=== PATIENT | female | born 1980 | race Caucasian/White ===

== ENCOUNTER 2016-07-04 00:05 | Inpatient (IN) | payer BC ==
--- NOTE | 2016-07-04 00:33 | P.PROBDLV ---
Vaginal Delivery Note - . Vaginal Delivery Note: I was called to see this patient shortly after her arrival to triage. She is a patient of Dr. Mayfield'marilee and arrived in active labor. As soon as she was placed on the bed in triage, the baby precipitously delivered with spontaneous rupture membranes at that time. It appeared to be clear fluid but a lot of blood was noted at the time. Dr. Cantu was called and is en route. Since I was available in the hospital I was called to assist with the delivery. When I arrived the baby was crying and was being taken to the nursery by nursing staff. A viable female was noted with scores of 8 at 1 minute and 9 at 5 minutes and weight of 6 lbs. 14 oz. Placenta delivered shortly thereafter, intact, with a three-vessel cord. Ears contracted well after oxytocin was given and uterine massage was carried out. Inspection with a gloved hand did reveal some small amount of membranes that was palpable. This was grasped with a gloved hand and pulled out in one piece. Inspection of the perineum revealed no perineal lacerations. Estimated blood loss is approximately 200 mL's. Both mother and are in stable condition. Baby delivery time was 12:07 AM and placenta delivery time was 12:19 AM.
[2016-07-04] MEDS ORDERED: LANOLIN CREAM 5 GM TUBE TOPICAL PRN (00:43)
[2016-07-04] MEDS ORDERED: ZOLPIDEM 5 MG TAB PO PRN (00:43)
[2016-07-04] MEDS ORDERED: Acetaminophen-Codeine 300-30mg TAB PO PRN (00:43)
[2016-07-04] MEDS ORDERED: diphenhydrAMINE 25 MG CAP PO PRN (00:43)
[2016-07-04] MEDS ORDERED: diphenhydrAMINE 50 MG/ML 1 ML VIAL IVP PRN ×2 (00:43)
[2016-07-04] MEDS ORDERED: WITCH HAZEL 1 EACH MED..PAD TOPICAL PRN (00:43)
[2016-07-04] MEDS ORDERED: HYDROCORTISONE 2.5% RECTAL CREAM 30 GM TUBE RECTAL PRN (00:43)
[2016-07-04] MEDS ORDERED: SIMETHICONE 80 MG CHEWABLE PO PRN (00:43)
[2016-07-04] MEDS ORDERED: ACETAMINOPHEN TAB 325 MG TAB PO PRN (00:43)
[2016-07-04] MEDS ORDERED: BENZOCAINE/MENTHOL SPRAY 1 GM/SPRAY AEROSOL TOPICAL PRN (00:43)
[2016-07-04] MEDS ORDERED: diphenhydrAMINE 50 MG CAP PO PRN (00:43)
[2016-07-04] MEDS ORDERED: diphenhydrAMINE ELIXIR 25 MG/10 ML CUP PO PRN (00:43)
--- NOTE | 2016-07-04 00:43 | P.HPOB ---
History of Present Illness H&P Date: 07/04/16 Chief Complaint: Delivered in triage This is a 36-year-old white female 4 para 2012 EDC 06/30/2016 at 40-4/7 weeks' gestation. Patient presented to the hospital with a complaint of uterine contractions. Upon transferring to the bed in the triage area, spontaneous amniorrhexis occurred with clear fluid and rapid delivery. Patient delivered a liveborn female infant with scores of 8 and 9 at one and 5 minutes respectively at 1207 hrs. Umbilical cord was doubly clamped and ligated. Infant's scores were 8 and 9 at one and 5 minutes respectively. Infant weighed 6 lbs. 14 oz. or 3120 g. Placenta delivered spontaneously, it was inspected and noted to be intact with trivascular cord at 1219 hrs. At this time, I draped the perineal body. Inspection of the cervix, vagina, perineum. Rectal areas revealed no lacerations and no defects. Fundus is firm and in the midline, symmetric and 18 week size. Estimated blood loss 250 mL's. Past medical history is significant for cleft palate. Patient also has obesity. Past surgical history cleft palate repair, colonoscopy 2, arthroscopic surgery of the left knee, voluntary termination of . ALLERGIES include Avelox to which she reports throat swelling. Family history significant for colon cancer diabetes and hypertension. Obstetric history: Blood type is O+, rubella status immune. VDRL testing, urine culture, hepatitis B surface antigen, HIV testing, gonorrhea and chlamydia cultures, antibody screen all negative. One-hour Glucola 125. Group B strep cultures negative. Social history is significant for former tobacco smoker, quit with . She denies alcohol or drug use. She is a medical laboratory manager. Current medications vitamins. On exam this is a pleasant white female, 5 foot 4-1/2 inches, approximate 200 pounds, vital signs are stable and patient is afebrile. The general physical exam is within normal limits. Extremities reveal no edema. Breasts are not engorged. As noted, at this time perineal body is clean and dry. There is minimal lochia rubra noted. Impression: 40-4/7 weeks', advanced maternal age, precipitous delivery in the triage area. Mother and baby both doing well. Plan: Continue care at this time. Review of Systems Negative except as in HPI Past Medical History Past Medical History: No Reported History History of Any Multi-Drug Resistant Organisms: None Reported Additional Past Surgical History / Comment(s): Left knee arthroscopy, cleft palate repair as Past Anesthesia/Blood Transfusion Reactions: No Reported Reaction Past Psychological History: No Psychological Hx Reported Smoking Status: Never smoker Past Alcohol Use History: None Reported Past Drug Use History: None Reported - Past Family History Mother Family Medical History: Diabetes Mellitus, Hypertension Father Family Medical History: Diabetes Mellitus, Hypertension Sister(s) Family Medical History: Diabetes Mellitus, Hypertension Medications and Allergies Home Medications Medication Instructions Recorded Confirmed Type Pnv with Ca,No.71/Iron/FA 1 tab PO DAILY 06/07/14 06/18/16 History [Vol-Plus Tablet] Allergies Allergy/AdvReac Type Severity Reaction Status Date / Time moxifloxacin HCl Allergy Rash/Hives Verified 06/18/16 04:26 [From Avelox] Exam See dictation, please Assessment and Plan Plan: Routine care. Time with Patient: Less than 30
[2016-07-04] MEDS ORDERED: OXYTOCIN 30 UNITS/500 ML NS 30 UNIT in SALINE 1 500ML.BAG IV SCH (00:45)
[2016-07-04 01:33] VITALS: BMI 34.8
[2016-07-04] MEDS: IBUPROFEN 600 MG TAB PO PRN ×4 (01:45→23:45)
[2016-07-04] MEDS ORDERED: OXYTOCIN 10 UNIT/ML 1 ML VIAL IM ONE (01:48)
--- NOTE | 2016-07-04 08:54 | P.PNOBGVD ---
Subjective - Subjective Patient reports: Reports appetite normal, Reports voiding normally, Reports pain well controlled, Reports ambulating normally : doing well Objective - Latest Vital Signs Latest vital signs: Vital Signs Temp Pulse Resp BP Pulse Ox 07/04/16 02:24 66 15 114/64 07/04/16 01:54 16 131/84 98 07/04/16 01:24 82 17 124/74 96 07/04/16 01:09 76 17 122/69 98 07/04/16 00:54 72 17 124/67 99 07/04/16 00:39 81 17 129/74 99 07/04/16 00:24 96.8 F L 77 18 132/65 98 Intake and Output 07/03/16 07/04/16 07/04/16 22:59 06:59 14:59 Output Total 400 Balance -400 Output: Estimated Blood Loss 400 Other: Weight 92.079 kg - Exam Lungs: bilateral: normal Chest: Normal S1, Normal S2 Extremities: Present: normal Abdomen: Present: normal appearance, soft Uterus: Present: normal, firm Assessment and Plan (1) Normal spontaneous vaginal delivery Narrative/Plan: Continue routine care. Anticipate discharge home tomorrow morning. Current Visit: No Status: Acute Code(s): O80 - ENCOUNTER FOR FULL-TERM UNCOMPLICATED DELIVERY SNOMED Code(s): 28056670
[2016-07-04] MEDS: SENNOSIDES-DOCUSATE SODIUM 1 EACH TAB PO SCH ×2 (10:08→23:46)
[2016-07-05] MEDS: IBUPROFEN 600 MG TAB PO PRN (08:11)
[2016-07-05] MEDS: SENNOSIDES-DOCUSATE SODIUM 1 EACH TAB PO SCH (08:12)
[2016-07-05 08:16] VITALS: BP 141/79; PULSE 66; RESP 16; TEMP 97.9
--- NOTE | 2016-07-05 08:57 | P.DS ---
Providers Date of admission: 07/04/16 00:06 Expected date of discharge: 07/05/16 Attending physician: Fred Mayfield Primary care physician: Stated None - Discharge Diagnosis(es) (1) Normal spontaneous vaginal delivery Current Visit: No Status: Acute Hospital Course: The patient is a 36-year-old 4 para 2012 admitted at 40-4/7 weeks by good dating parameters. She is admitted in active labor and, while in triage and being transferred from her transport bed to a triage bed had spontaneous rupture of membranes and precipitously delivered in the presence only of the nurses a viable 6 lbs. 14 oz. baby girl with Apgars of 8 at 1 minute and 9 at 5 minutes. Her course was entirely unremarkable with vital signs remaining stable and her temperature was afebrile throughout. She was deemed stable for discharge by day #1 and was discharged home to follow-up in the office in 6 weeks' time routinely. Discharge instructions included calling for any significantly increased bleeding or foul-smelling lochia, significantly increased fever or abdominal pain, perineal complaints, breast complaints, or anything else that concerned her. She was additionally instructed to have nothing in the vagina for at least 6 weeks time to include intercourse. She understood her instructions and agrees to follow up as noted above. Discharge medications included continued vitamins as she has opted to breast-feed. She otherwise was to use [id number] analgesic pain medications as needed. Maternal blood type is O+ and rubella status is immune. Procedures: #1. Precipitous normal spontaneous vaginal delivery Patient Condition at Discharge: Good Plan - Discharge Summary Discharge Medication List Pnv with Ca,No.71/Iron/FA [Vol-Plus Tablet] 1 tab PO DAILY 06/07/14 [History] Follow up Appointment(s)/Referral(s): Fred Mayfield MD [STAFF PHYSICIAN] - 1 Week Discharge Disposition: HOME SELF-CARE
== END 2016-07-05 10:15 | disposition home or self-care (01) | DRG 775 ==
LOC: FBPOP 00:05 → 4FBP 00:06
PROVIDERS: ADMIT Obstetrics & Gynecology; ATTEND Obstetrics & Gynecology
PROC: 10E0XZZ Delivery of Products of Conception, External Approach (ICD-10-PCS; principal; 2016-07-04)
DX: O99.214 Obesity complicating childbirth (principal); O62.3 Precipitate labor; Z37.0 Single live birth; Z3A.40 40 weeks gestation of pregnancy; Z87.891 Personal history of nicotine dependence; Z82.49 Family history of ischemic heart disease and other diseases of the circulatory system
CPT/HCPCS: 88307

== ENCOUNTER → 2023-06-21 | Outpatient (CLI) | payer BC ==
--- NOTE | 2023-06-21 16:25 | CT ---
EXAMINATION TYPE: CT sinus wo con DATE OF EXAM: 06/21/2023 COMPARISON: None HISTORY: Chronic sinusitis. CT DLP: 500.1 mGycm. Automated Exposure Control for Dose Reduction was Utilized. TECHNIQUE: CT scan of the sinuses is performed without contrast, axial images are obtained, coronal r eformatted images are also reviewed. FINDINGS: There is marked mucosal thickening in the inferior aspect of the right maxillary sinus. There is a ti ny focal area of mucosal thickening in the left maxillary sinus. There is inflammatory change/mucosal thickening obstructing the right ostiomeatal complex. The left ostiomeatal complex is patent. The nasal cavity is unremarkable. The frontal ethmoid and sphenoid sinuses are well aerated. No osseous lesions are seen. The intraorbital contents are normal and symmetric. There is mild fluid scattered within the left mastoid air cells. The right mastoid air cells are well aerated. IMPRESSION: 1. Chronic sinusitis involving the right maxillary sinus as described above. 2. Mild fluid in the left mastoid air cells
== END | disposition home or self-care (01) ==
LOC: RADCTMAIN 15:11
PROVIDERS: ATTEND Otolaryngology
DX: J32.0 Chronic maxillary sinusitis (principal); H74.8X2 Other specified disorders of left middle ear and mastoid
CPT/HCPCS: 70486

== ENCOUNTER 2024-04-09 09:25 | Day surgery (SDC) | payer BC ==
[2024-04-06 10:59] VITALS: BMI 31.7
--- NOTE | 2024-04-08 07:30 | P.GSHP ---
History of Present Illness H&P Date: 04/08/24 Chief Complaint: Right flank pain The patient is a 44-year-old white female with a history of kidney stones, none of which have required surgery. She now presents with a 4-week history of right flank pain. CT scan and renal ultrasound have shown moderate right hydronephrosis. CT scan shows a 9 mm right renal calculus which does not appear to be obstructing, as well as nonobstructing left renal calculi measuring up to 3 mm. She has been offered the options of observation, extracorporal shockwave lithotripsy (ESWL), and ureteroscopic removal of the calculus. She has elected to proceed with the latter. - Gastrointestinal Gastrointestinal: Reports nausea - Genitourinary (Female) Genitourinary: Reports flank pain, Reports hematuria, Reports kidney stones, Reports urinary frequency Past Medical History Past Medical History: No Reported History Additional Past Medical History / Comment(s): Benign lesions on liver. Hx migr aines. Varicose veins left leg. History of Any Multi-Drug Resistant Organisms: None Reported Past Surgical History: Orthopedic Surgery Additional Past Surgical History / Comment(s): Left knee arthroscopy, cleft palate repair as . Past Anesthesia/Blood Transfusion Reactions: No Reported Reaction, Motion Sickness Smoking Status: Current every day smoker - Past Family History Mother Family Medical History: Diabetes Mellitus, Hypertension Father Family Medical History: Cancer, Diabetes Mellitus, Hypertension Additional Family Medical History / Comment(s): Colon cancer. Sister(s) Family Medical History: Diabetes Mellitus, Hypertension Medications and Allergies Home Medications Medication Instructions Recorded Confirmed Type HYDROcodone/APAP 5-325MG [[place] 1 tab PO Q6HR PRN 04/06/24 04/06/24 History 5-325] Ketorolac [Toradol] 10 mg PO Q6HR PRN 04/06/24 04/06/24 History Ondansetron [Zofran] 4 mg PO Q8HR PRN 04/06/24 04/06/24 History Allergies Allergy/AdvReac Type Severity Reaction Status Date / Time moxifloxacin HCl Allergy Rash/Hives Verified 04/06/24 10:49 [From Avelox] Surgical - Exam - General well developed, well nourished, no distress - Respiratory normal respiratory effort - Psychiatric oriented to time, oriented to person, oriented to place, speech is normal, memory intact Results - Imaging CT scan - abdomen: report reviewed, image reviewed Assessment and Plan (1) Calculus of kidney Status: Acute Code(s): N20.0 - CALCULUS OF KIDNEY SNOMED Code(s): 32966144 Plan: Cystoscopy, right retrograde pyelogram, right ureteroscopy with Holmium laser lithotripsy and stone basketing, right ureteral stent insertion. The procedure has been reviewed in detail with the patient. She has been made aware of potential risks, which include anesthesia, bleeding, infection, inability to successfully remove the calculus, and ureteral injury. She is also aware that the calculus does not appear to be the cause of the hydronephrosis, and if she is found to have UPJ obstruction balloon dilation of the UPJ may be performed.
[~2024-04-09 09:25] MED LIST: HYDROmorphone 0.5 MG/0.5 ML SYRINGE IVP PRN; droPERidol 5 MG/2 ML VIAL IVP ONE
[2024-04-09] MEDS: IV FLUID CONTINUATION 1,000 ML IV ONE (09:50)
--- NOTE | 2024-04-09 09:55 | XR ---
EXAMINATION TYPE: XR KUB DATE OF EXAM: 04/09/2024 9:45 AM COMPARISON: None CLINICAL INDICATION: Female, 44 years old with history of Renal calculi; [facility] TECHNIQUE: One radiographic view of the abdomen was obtained. FINDINGS: There is a moderate stool burden, otherwise, the bowel gas pattern is nonspecific without d ilated loops of small or large bowel. . Fecal material and gas are demonstrated throughout the colon and rectum. There is no evidence for organomegaly or pneumoperitoneum. The osseous structures are intact. Right renal calculi measuring up to 9 mm. IMPRESSION: 1. Right renal calculus. 2. Moderate amount of stool, Nonspecific bowel gas pattern without radiographic evidence for acute p rocess. [facility], , 04/09/2024 9:53 AM
[2024-04-09] MEDS: LACTATED RINGERS 1,000 ML IV SCH (10:21)
[2024-04-09] MEDS: ONDANSETRON 4 MG/2 ML VIAL IVP ONE (10:21)
[2024-04-09] MEDS: DEXAMETHASONE SOD PHOSPHATE 4 MG/ML 1 ML VIAL IV ONE (10:22)
[2024-04-09] MEDS ORDERED: LIDOCAINE 1% INJ 10MG/ML (20 ML MDV) ONE (11:20)
[2024-04-09] MEDS ORDERED: PROPOFOL 10 MG/ML 20 ML VIAL IV ONE (11:20)
[2024-04-09] MEDS ORDERED: MIDAZOLAM 2 MG/2 ML VIAL ONE (11:20)
[2024-04-09] MEDS ORDERED: ROCURONIUM 10 MG/ML (5 ML VIAL) IV ONE (11:20)
[2024-04-09] MEDS ORDERED: GLYCOPYRROLATE 0.2 MG/ML 2 ML VIAL ONE (11:20)
[2024-04-09] MEDS ORDERED: fentaNYL (PF) 50 MCG/ML 2 ML AMP ONE (11:20)
[2024-04-09] MEDS ORDERED: NEOSTIGMINE 1 MG/ML 10 ML VIAL ONE (11:20)
[2024-04-09] MEDS: IOPAMIDOL-370 100ML BTL MISCELLANE ONE ×2 (11:42)
[2024-04-09] MEDS: LACTATED RINGERS 1,000 ML IV ONE (12:06)
[2024-04-09 12:53] VITALS: TEMP 97.1
--- NOTE | 2024-04-09 13:13 | P.OP ---
Date of Procedure: 04/09/24 Preoperative Diagnosis: Right hydronephrosis, right renal calculus Postoperative Diagnosis: Right hydronephrosis secondary to UPJ obstruction, right renal calculus Procedure(s) Performed: Cystoscopy, right retrograde pyelogram, balloon dilation of right UPJ obstruction, right ureteroscopy with Holmium laser lithotripsy and stone basketing, right ureteral stent insertion Anesthesia: GETA Surgeon: Luis Alberto Rudolph Estimated Blood Loss (ml): 10 IV fluids (ml): 1,000 Pathology: other (Calculus fragments, sent for chemical analysis) Condition: stable Disposition: PACU Indications for Procedure: The patient is a 44-year-old white female with a history of kidney stones, none of which have required surgery. She now presents with a 4-week history of right flank pain. CT scan and renal ultrasound have shown moderate right hydronephrosis. CT scan shows a 9 mm right renal calculus which does not appear to be obstructing, as well as nonobstructing left renal calculi measuring up to 3 mm. She has been offered the options of observation, extracorporal shockwave lithotripsy (ESWL), and ureteroscopic removal of the calculus. She has elected to proceed with the latter. Operative Findings: Right midpole renal calculus, very dense. Right UPJ obstruction. Description of Procedure: The patient was taken to the operating room and placed in the dorsolithotomy position, with legs supported in Soule[place]ane stirrups. The external genitalia was prepped and draped sterilely. The 30 lens was used to introduce the 21-Lithuanian Donaldson cystoscopic sheath through the urethra and into the bladder under direct vision. The bladder was examined in its entirety. Both ureteral orifices were normal anatomic location and configuration, and clear urine effluxed from both. No tumors or foreign bodies were seen. Using a 10 Lithuanian cone-tip catheter, a right retrograde pyelogram was performed. The right ureter was normal in course and caliber. Moderate hydronephrosis was noted, and the appearance of the right UPJ suggested an obstruction with a high insertion point. A 0.038 inch Glidewire was passed through the cystoscope. The right ureteral orifice was cannulated, and the Glidewire was advanced up to the renal pelvis. The cystoscope was removed, and an 11/13-Lithuanian ureteral access catheter was passed over the wire, up to the mid ureter. The Bizilyra flexible ureteroscope was then passed through the ureteral access catheter sheath and advanced under direct vision, up to the ureteropelvic junction. The lumen was noted to abruptly change in direction, and it was possible to advance the ureteroscope through the lumen and into a dilated renal pelvis. The calculus was identified within a midpole calyx. A 1.9 Lithuanian nitinol basket was used to reposition the calculus into an upper pole calyx. The 272 micron Holmium laser probe was passed through the ureteroscope, and lithotripsy was performed. Dusting was attempted, but the calculus was very dense and broke into fragments. Lithotripsy was continued until the fragments measured approximately 2 mm in size. At this time, it was decided to perform balloon dilation of the UPJ prior to performing any stone basketing. An 18 Lithuanian, 4 cm balloon dilating catheter was used to dilate the UPJ. The ureteroscope was then passed into the renal pelvis over the Glidewire, and the 1.9 Lithuanian nitinol basket was used to remove a stone fragment. This was performed several times. However, each time the ureteroscope was passed back into the kidney, it needed to be advanced over the wire. After removing several fragments, it was difficult to advance the ureteroscope through the UPJ over the wire, and it was decided to terminate the procedure. The Glidewire was passed into the right renal pelvis, where it coiled. The ureteroscope was withdrawn. Pullout ureteroscopy showed no evidence of ureteral trauma. The Glidewire was backloaded into the cystoscope, which was passed into the bladder. A 24 cm, 6 Lithuanian double-J ureteral stent w as placed over the wire. Proper stent positioning was verified fluoroscopically and endoscopically. The bladder was emptied and the cystoscope removed. The patient tolerated the procedure well and was taken to the recovery room in stable condition. [facility] [place] Procedure Acuity: Elective Stone Size and Location: 9 mm, right midpole Ureteral Dilation: Balloon Dilation Ureteral Access Sheath Used: Yes Stone Sent for Analysis: Yes All Stones/Fragments Were Removed with a Basket: No Complications: No Preoperative Antibiotics Given: Yes Stent Placed: Yes If Stent Placed, Was String Left Attached: No If Stent Placed, When is it to be Removed: 2 weeks Discharge Medications: Toradol, tamsulosin, tolterodine
[2024-04-09 13:53] VITALS: BP 114/74; PULSE 87; RESP 16
--- NOTE | 2024-04-09 20:47 | FL ---
Fluoroscopy INDICATION: Pain FINDINGS: Fluoroscopy time: 49 seconds. Total dose area product (DAP) in uGy*m?, mGy*cm? (or similar): 0.72608 Images obtained: 8. IMPRESSION: 1. Documentation of fluoroscopy. [facility], , 04/09/2024 8:45 PM
== END 2024-04-09 14:14 | disposition home or self-care (01) ==
LOC: OR 09:25
PROVIDERS: ATTEND Urology
DX: N13.2 Hydronephrosis with renal and ureteral calculous obstruction (principal); F17.210 Nicotine dependence, cigarettes, uncomplicated; G43.909 Migraine, unspecified, not intractable, without status migrainosus; Z83.3 Family history of diabetes mellitus; Z82.49 Family history of ischemic heart disease and other diseases of the circulatory system; Z80.0 Family history of malignant neoplasm of digestive organs; Z88.1 Allergy status to other antibiotic agents; Z79.899 Other long term (current) drug therapy
CPT/HCPCS: 81025; 82365; 74420; 74018; 52356; C2625; C1758; C1769; J2250; J1100; J2710; J0690; J2405; J2003; J3010; J2704; Q9967; J1596

== ENCOUNTER 2024-04-30 10:01 | Day surgery (SDC) | payer BC ==
[2024-04-24 13:04] VITALS: BMI 32.2
--- NOTE | 2024-04-29 21:19 | P.GSHP ---
History of Present Illness H&P Date: 04/29/24 Chief Complaint: Right flank pain The patient is a 44-year-old white female with a history of kidney stones, none of which have required surgery. She now presents with a 4-week history of right flank pain. CT scan and renal ultrasound showed moderate right hydronephrosis. CT scan showed a 9 mm right renal calculus which did not appear to be obstructing, as well as nonobstructing left renal calculi measuring up to 3 mm. On April 09, she underwent cystoscopy, right retrograde pyelogram, balloon dilation of right UPJ obstruction, right ureteroscopy with Holmium laser lithotripsy and stone basketing, right ureteral stent insertion. It was verified at that time that the hydronephrosis was due to UPJ obstruction rather than the renal calculus. The calculus was partially fragmented, and analysis revealed it to be partially composed of calcium oxalate monohydrate. - Constitutional Constitutional: Denies chills, Denies fever - Gastrointestinal Gastrointestinal: Reports nausea - Genitourinary (Female) Genitourinary: Reports flank pain, Reports kidney stones Past Medical History Past Medical History: No Reported History Additional Past Medical History / Comment(s): kidney stones. Benign lesions on liver. Hx migraines. Varicose veins left leg. History of Any Multi-Drug Resistant Organisms: None Reported Past Surgical History: Orthopedic Surgery Additional Past Surgical History / Comment(s): Left knee arthroscopy, cleft palate repair as , procedure for kidney stones. Past Anesthesia/Blood Transfusion Reactions: No Reported Reaction, Motion Sickness Smoking Status: Current every day smoker - Past Family History Mother Family Medical History: Diabetes Mellitus, Hypertension Father Family Medical History: Cancer, Diabetes Mellitus, Hypertension Additional Family Medical History / Comment(s): Colon cancer. Sister(s) Family Medical History: Diabetes Mellitus, Hypertension Medications and Allergies Home Medications Medication Instructions Recorded Confirmed Type HYDROcodone/APAP 5-325MG [[place] 1 tab PO Q6HR PRN 04/06/24 04/24/24 History 5-325] Ketorolac [Toradol] 10 mg PO Q6HR PRN 04/06/24 04/24/24 History Ondansetron [Zofran] 4 mg PO Q8HR PRN 04/06/24 04/24/24 History Acetaminophen [Tylenol Extra 500 - 1,000 mg PO Q4-6H PRN 04/24/24 04/24/24 History Strength] Allergies Allergy/AdvReac Type Severity Reaction Status Date / Time moxifloxacin HCl Allergy Rash/Hives Verified 04/24/24 12:54 [From Avelox] Surgical - Exam - General well developed, well nourished, no distress - Genitourinary normal external genitalia - Psychiatric oriented to time, oriented to person, oriented to place, speech is normal, memory intact Results - Imaging CT scan - abdomen: report reviewed, image reviewed Assessment and Plan (1) Calculus of kidney Status: Acute Code(s): N20.0 - CALCULUS OF KIDNEY SNOMED Code(s): 72172632 Plan: Cystoscopy, right ureteroscopy with Holmium laser lithotripsy and stone basketing, right ureteral stent removal or stent change. The procedure has been reviewed in detail with the patient. She is aware of potential risks, which include anesthesia, bleeding, infection, inability to remove the calculus fragments, and ureteral injury. She is also aware that she may require a right pyeloplasty.
[~2024-04-30 10:01] MED LIST changes: +LIDOCAINE 1% (10MG/ML) FOR IV START INTRADERMA PRN
[2024-04-30] MEDS: IV FLUID CONTINUATION 1,000 ML IV ONE (10:24)
[2024-04-30] MEDS: ONDANSETRON 4 MG/2 ML VIAL IVP ONE (10:57)
[2024-04-30] MEDS: LACTATED RINGERS 1,000 ML IV SCH (10:57)
[2024-04-30] MEDS: DEXAMETHASONE SOD PHOSPHATE 4 MG/ML 1 ML VIAL IV ONE (10:59)
--- NOTE | 2024-04-30 11:12 | XR ---
EXAMINATION TYPE: XR KUB DATE OF EXAM: 04/30/2024 10:40 AM COMPARISON: 06/09/2023 CLINICAL INDICATION: Female, 44 years old with history of right kidney stone; [facility] TECHNIQUE: One radiographic view of the abdomen was obtained. FINDINGS: The bowel gas pattern is nonspecific without dilated loops of small or large bowel. . Fecal material and gas are demonstrated throughout the colon and rectum. There is no evidence for organome lana or pneumoperitoneum. The osseous structures are intact. Right ureteral stent with superior and inferior pigtails in appropriate position. Multiple right renal calculi measuring up to 4 mm. IMPRESSION: Right ureteral stent appropriate position. Multiple right nonobstructing renal calculus. [facility], , 04/30/2024 11:09 AM
[2024-04-30] MEDS ORDERED: GLYCOPYRROLATE 0.2 MG/ML 2 ML VIAL ONE (12:09)
[2024-04-30] MEDS ORDERED: MIDAZOLAM 2 MG/2 ML VIAL ONE (12:09)
[2024-04-30] MEDS ORDERED: SUCCINYLCHOLINE CHLORIDE 200 MG/10 ML VIAL IV ONE (12:09)
[2024-04-30] MEDS ORDERED: ROCURONIUM 10 MG/ML (5 ML VIAL) IV ONE (12:09)
[2024-04-30] MEDS ORDERED: LIDOCAINE 1% INJ 10MG/ML (20 ML MDV) ONE (12:09)
[2024-04-30] MEDS ORDERED: PROPOFOL 10 MG/ML 20 ML VIAL IV ONE (12:09)
[2024-04-30] MEDS ORDERED: fentaNYL (PF) 50 MCG/ML 2 ML AMP ONE (12:09)
[2024-04-30] MEDS ORDERED: NEOSTIGMINE 1 MG/ML 10 ML VIAL ONE (12:09)
--- NOTE | 2024-04-30 13:10 | P.OP ---
Date of Procedure: 04/30/24 Preoperative Diagnosis: Right UPJ obstruction, right renal calculus Postoperative Diagnosis: Same Procedure(s) Performed: Cystoscopy, right ureteroscopy with Holmium laser lithotripsy and stone basketing Anesthesia: FLORES Surgeon: Luis Alberto Rudolph Estimated Blood Loss (ml): 0 IV fluids (ml): 600 Pathology: none sent Condition: stable Disposition: PACU Indications for Procedure: The patient is a 44-year-old white female with a history of kidney stones, none of which have required surgery. She now presents with a 4-week history of right flank pain. CT scan and renal ultrasound showed moderate right hydronephrosis. CT scan showed a 9 mm right renal calculus which did not appear to be obstructing, as well as nonobstructing left renal calculi measuring up to 3 mm. On April 09, she underwent cystoscopy, right retrograde pyelogram, balloon dilation of right UPJ obstruction, right ureteroscopy with Holmium laser lithotripsy and stone basketing, right ureteral stent insertion. It was verified at that time that the hydronephrosis was due to UPJ obstruction rather than the renal calculus. The calculus was partially fragmented, and analysis revealed it to be partially composed of calcium oxalate monohydrate. Operative Findings: Open right UPJ. Multiple lower pole calculus fragments. Description of Procedure: The patient was taken to the operating room and placed in the dorsolithotomy pos ition, with legs supported in Souleymane stirrups. The external genitalia was prepped and draped sterilely. The 30 lens was used to introduce the 21-Bahamian Donaldson cystoscopic sheath through the urethra and into the bladder under direct vision. The bladder was examined and was unremarkable. Grasping forceps were used to grasp the distal end of the right ureteral stent, which was removed along with the cystoscope. A 0.035 inch Glidewire was passed through the stent and up to the right renal pelvis, where it coiled. The stent was removed, and the [employer] flexible ureteroscope was passed over the wire, into the right renal pelvis. The wire was then removed, and the UPJ was examined. It was noted to be patent, and was not difficult to pass the ureteroscope in and out of the renal pelvis. The right kidney was noted to be hydronephrotic. Each calyx was examined. Calculus fragments were seen within 2 lower pole calyces. Consideration was given to removing these via stone basketing, but this would have required multiple passes in and out of the kidney, as there were approximately 10 of these fragments measuring 2 to 3 mm in size. The 272 micron Holmium laser probe was passed through the ureteroscope, and lithotripsy was performed, reducing the size of each fragment such that there were no residual calculus fragments exceeding 1 mm in size. Fluoroscopy showed no residual calculus fragments. Pullout ureteroscopy showed a 2 to 3 mm calculus fragment within the right proximal ureter. This was removed using a 1.9 Bahamian nitinol basket. Pullout ureteroscopy showed no evidence of ureteral trauma. The patient tolerated the procedure well and was taken to the recovery room in stable condition. [facility] Report: Procedure Acuity: Elective Stone Size and Location: Right lower pole, 3 mm Ureteral Dilation: No Ureteral Access Sheath Used: No Stone Sent for Analysis: No All Stones/Fragments Were Removed with a Basket: No Complications: No Preoperative Antibiotics Given: Yes Stent Placed: No Discharge Medications: None
[2024-04-30 13:19] VITALS: TEMP 98.6
[2024-04-30 13:26] VITALS: RESP 16
[2024-04-30 14:00] VITALS: BP 148/72; PULSE 67
--- NOTE | 2024-04-30 15:15 | FL ---
EXAMINATION TYPE: FL guidance operating room DATE OF EXAM: 04/30/2024 FLUOROSCOPY CYSTO RT SIDE KIDNEY STONE FL TIME- 9S DAP- [id number] DR. QUIGLEY 3 images are submitted. [facility], , 04/30/2024 3:13 PM
== END 2024-04-30 14:20 | disposition home or self-care (01) ==
LOC: OR 10:01
PROVIDERS: ATTEND Urology
DX: N13.2 Hydronephrosis with renal and ureteral calculous obstruction (principal); F17.200 Nicotine dependence, unspecified, uncomplicated; Z87.442 Personal history of urinary calculi
CPT/HCPCS: 74018; 52353; J1100; J0690; J2405; 81025